=== PATIENT | male | born 1985 | race Caucasian/White ===

== ENCOUNTER 2019-02-17 13:01 | Emergency (ER) | payer OTHER ==
[~2019-02-17] VITALS: Ht 172.7 cm; Wt 127.0 kg
[2019-02-17 13:07] VITALS: Ht 172.7 cm; Wt 127.0 kg
[2019-02-17 14:25] VITALS: BP 115/67
== END 2019-02-17 15:09 | disposition home or self-care (01) ==
LOC: ED 13:01
DX: S80.01XA Contusion of right knee, initial encounter (principal); V23.4XXA Motorcycle driver injured in collision with car, pick-up truck or van in traffic accident, initial encounter; Y93.I9 Activity, other involving external motion; Y92.488 Other paved roadways as the place of occurrence of the external cause; Y99.8 Other external cause status